=== PATIENT | female | born 1975 | race African-American/Black ===

== ENCOUNTER 2019-03-17 01:00 | Emergency (ER) | payer MEDICAID ==
[~2019-03-17] VITALS: Ht 162.6 cm; Wt 68.0 kg
[2019-03-17 01:07] VITALS: BP 116/65
== END 2019-03-17 04:36 | disposition left against medical advice (07) ==
LOC: ER 01:00
DX: Z53.21 Procedure and treatment not carried out due to patient leaving prior to being seen by health care provider (principal)

== ENCOUNTER 2019-03-17 07:21 | Emergency (ER) | payer MEDICAID ==
[~2019-03-17] VITALS: Ht 162.6 cm; Wt 68.0 kg
[2019-03-17] MEDS ORDERED: METOCLOPRAMIDE HCL 10MG TABLET PO ONE (09:00)
[2019-03-17] MEDS ORDERED: ACETAMINOPHEN 325MG TABLET PO ONE (09:00)
[2019-03-17 09:35] LABS: CLARITY URINE CLEAR (CLEAR); COLOR URINE YELLOW (YELLOW); KETONES URINE NEGATIVE (NEGATIVE); LEUKOCYTE ESTERASE URINE NEGATIVE (NEGATIVE); NITRITE URINE NEGATIVE (NEGATIVE); OCCULT BLOOD URINE NEGATIVE (NEGATIVE); PROTEIN URINE NEGATIVE (NEGATIVE); SPECIFIC GRAVITY URINE 1.015 (1.005-1.030); UROBILINOGEN URINE 0.2 E.U./dL (0.2-1.0)
[2019-03-17 14:27] VITALS: BP 103/63
== END 2019-03-17 14:30 | disposition home or self-care (01) ==
LOC: ER 07:21
DX: R51 Headache (principal)
CPT/HCPCS: 81003; 81025; 99283; J8597

== ENCOUNTER 2021-06-10 00:13 | Emergency (ER) | payer MEDICAID, OTHER ==
[~2021-06-10] VITALS: Ht 165.1 cm; Wt 75.3 kg
[~2021-06-10 00:13] MED LIST: DOCU-150 MT; DOXY100C2 MT; IBUP-2029 MT; P20 MT
[2021-06-10] MEDS ORDERED: DIPH28.34 TP (02:42)
[2021-06-10] MEDS ORDERED: TOLN150S TP (02:43)
[2021-06-10 03:13] VITALS: BP 127/78
== END 2021-06-10 04:58 | disposition home or self-care (01) ==
LOC: ER 00:13
DX: S90.862A Insect bite (nonvenomous), left foot, initial encounter (principal); S90.861A Insect bite (nonvenomous), right foot, initial encounter; J44.9 Chronic obstructive pulmonary disease, unspecified; F32.9 Major depressive disorder, single episode, unspecified; I10 Essential (primary) hypertension; B35.3 Tinea pedis; F17.290 Nicotine dependence, other tobacco product, uncomplicated; W57.XXXA Bitten or stung by nonvenomous insect and other nonvenomous arthropods, initial encounter; Y93.89 Activity, other specified; Y92.89 Other specified places as the place of occurrence of the external cause; Y99.8 Other external cause status; Z79.899 Other long term (current) drug therapy; Z88.0 Allergy status to penicillin; Z88.2 Allergy status to sulfonamides
CPT/HCPCS: 99282

== ENCOUNTER 2021-10-07 02:53 | Emergency (ER) | payer MEDICAID, OTHER ==
[~2021-10-07] VITALS: Ht 162.6 cm; Wt 77.0 kg
[~2021-10-07 02:53] MED LIST changes: +DIPH28.34 TP; -DOXY100C2 MT; +DOXY100C5 MT; +TOLN150S TP
[2021-10-07] MEDS ORDERED: IBUPROFEN 600MG TABLET PO STA (04:24)
[2021-10-07 05:01] LABS: BASOPHILS % 0.8 % (0.0-2.0); EOSINOPHILS % 1.6 % (0.0-5.0); HEMATOCRIT. 41.3 % (36.0-48.0); HEMOGLOBIN. 13.8 g/dL (12.0-16.0); LYMPHOCYTES % 42.3 % (20.0-50.0); MEAN CORPUSCULAR HEMOGLOBIN 30.7 pg (28.0-32.0); MEAN CORPUSCULAR VOLUME 91.7 fL (81.0-99.0); MEAN PLATELET VOLUME 7.3 fl (7.4-10.4); MONOCYTES % 8.7 % (2.0-8.0); NEUTROPHILS % 46.6 % (40.0-76.0); PLATELET 319 x1000/uL (130-400); RED CELL DISTRIBUTION WIDTH 14.3 % (11.6-14.6)
[2021-10-07 05:07] LABS: CHLORIDE 106 mEq/L (98-107)
[2021-10-07 05:22] LABS: HCG SCREEN NEGATIVE
[2021-10-07] MEDS ORDERED: IBUP-2028 MT (05:38)
[2021-10-07 06:14] VITALS: BP 110/56
== END 2021-10-07 06:16 | disposition home or self-care (01) ==
LOC: ER 02:53
DX: R07.89 Other chest pain (principal); J44.9 Chronic obstructive pulmonary disease, unspecified; I10 Essential (primary) hypertension; F17.290 Nicotine dependence, other tobacco product, uncomplicated
CPT/HCPCS: 36415; 71045; 80053; 83880; 84484; 84703; 85025; 93005; 99285

== ENCOUNTER 2021-10-17 17:56 | Emergency (ER) | payer MEDICAID ==
[~2021-10-17] VITALS: Ht 162.6 cm; Wt 82.0 kg
[~2021-10-17 17:56] MED LIST changes: +IBUP-2028 MT
[2021-10-18] MEDS ORDERED: LEVOFLOXACIN 250MG TABLET PO ONE (02:15)
[2021-10-18] MEDS ORDERED: LEVO750T46 MT (04:51)
[2021-10-18 07:35] VITALS: BP 146/70
[2021-10-19] MEDS ORDERED: LEVO250T58 PO (13:43)
== END 2021-10-18 08:18 | disposition home or self-care (01) ==
LOC: ER 17:56
DX: J18.9 Pneumonia, unspecified organism (principal); J44.9 Chronic obstructive pulmonary disease, unspecified; E11.9 Type 2 diabetes mellitus without complications; I10 Essential (primary) hypertension; Z98.890 Other specified postprocedural states; Z79.899 Other long term (current) drug therapy; Z88.2 Allergy status to sulfonamides; Z88.0 Allergy status to penicillin; Z59.00 Homelessness unspecified; Z20.822 Contact with and (suspected) exposure to COVID-19
CPT/HCPCS: 71045; 81025; 87426; 99284

== ENCOUNTER 2021-10-18 11:10 | Emergency (ER) | payer MEDICAID ==
[~2021-10-18] VITALS: Ht 162.6 cm; Wt 82.0 kg
[~2021-10-18 11:10] MED LIST changes: +LEVO750T46 MT
[2021-10-18] MEDS ORDERED: LEVOFLOXACIN 250MG TABLET PO ONE (20:15)
[2021-10-18] MEDS ORDERED: MECLIZINE 25MG TABLET PO ONE (20:30)
[2021-10-18 22:03] LABS: BASOPHILS % 0.6 % (0.0-2.0); HEMATOCRIT. 39.1 % (36.0-48.0); HEMOGLOBIN. 13.9 g/dL (12.0-16.0); LYMPHOCYTES % 42.4 % (20.0-50.0); MEAN CORPUSCULAR VOLUME 90.1 fL (81.0-99.0); MEAN PLATELET VOLUME 7.7 fl (7.4-10.4); PLATELET 279 x1000/uL (130-400); RED BLOOD CELL COUNT 4.35 mill/uL (4.2-5.4)
[2021-10-18 22:11] LABS: CHLORIDE 109 mEq/L (98-107)
[2021-10-19 13:04] VITALS: BP 104/64
[2021-10-19] MEDS ORDERED: LEVO250T58 PO (13:43)
== END 2021-10-19 15:11 | disposition home or self-care (01) ==
LOC: ER 11:10
DX: R42 Dizziness and giddiness (principal); J44.9 Chronic obstructive pulmonary disease, unspecified; E11.9 Type 2 diabetes mellitus without complications; I10 Essential (primary) hypertension; F17.290 Nicotine dependence, other tobacco product, uncomplicated; Z79.899 Other long term (current) drug therapy; Z88.0 Allergy status to penicillin
CPT/HCPCS: 36415; 80048; 85025; 93005; 99285; J8597

== ENCOUNTER 2024-10-08 18:49 | Emergency (ER) | payer MEDICAID ==
[~2024-10-08] VITALS: Ht 160 cm; Wt 68.0 kg
[~2024-10-08 18:49] MED LIST changes: -DOCU-150 MT; +DOCU-422 MT; +LEVO250T74 PO; -LEVO750T46 MT; +LEVO750T68 MT
[2024-10-08 18:57] VITALS: TEMP 98.1; O2SAT 99
[2024-10-08] MEDS: HYDROCODONE/ACETAMINOPHEN 10/325MG TABLET PO ONE (22:35)
[2024-10-09 05:07] VITALS: BP 134/78; PULSE 90; RESP 16; O2SAT 99
== END 2024-10-09 05:08 | disposition home or self-care (01) ==
LOC: ER 18:49
DX: R51.9 Headache, unspecified (principal); I10 Essential (primary) hypertension; J44.9 Chronic obstructive pulmonary disease, unspecified; E11.9 Type 2 diabetes mellitus without complications; Z88.2 Allergy status to sulfonamides; Z88.0 Allergy status to penicillin
CPT/HCPCS: 99284

== ENCOUNTER 2025-01-06 16:56 | Emergency (ER) | payer MEDICAID ==
[~2025-01-06] VITALS: Ht 165.1 cm; Wt 73.0 kg
[2025-01-06 16:57] VITALS: O2SAT 100
[2025-01-06 18:28] LABS: CHLORIDE 98 mEq/L (98-107); POTASSIUM 4.1 mEq/L (3.5-5.1); SODIUM 136 mEq/L (136-145)
[2025-01-06 18:29] LABS: CARBON DIOXIDE 25 mEq/L (21-32)
[2025-01-06] MEDS: ONDANSETRON HCL 4MG/2ML INJ IV STA (18:32)
[2025-01-06] MEDS: SODIUM CHLORIDE 0.9% 1,000 ML IV ONE (18:32)
[2025-01-06] MEDS: MORPHINE SULFATE 4 MG/ML INJ (FOR IV/IM USE) IV STA (18:32)
[2025-01-06 18:34] LABS: CREATININE 0.6 mg/dL (0.6-1.0); ETHANOL BLOOD 64 mg/dL (<10); GLUCOSE 88 mg/dL (70-105)
[2025-01-06 18:45] LABS: BASOPHILS % 0.7 % (0.0-2.0); EOSINOPHILS % 0.4 % (0.0-5.0); HEMATOCRIT. 46.3 % (36.0-48.0); HEMOGLOBIN. 15.5 g/dL (12.0-16.0); LYMPHOCYTES % 36.8 % (20.0-50.0); MEAN CORPUSCULAR HEMOGLOBIN 31.7 pg (28.0-32.0); MEAN CORPUSCULAR HGB CONC 33.4 g/dL (31.0-37.0); MEAN CORPUSCULAR VOLUME 94.7 fL (81.0-99.0); MEAN PLATELET VOLUME 7.9 fl (7.4-10.4); MONOCYTES % 6.8 % (2.0-8.0); NEUTROPHILS % 55.3 % (40.0-76.0); PLATELET 187 x1000/uL (130-400); RED BLOOD CELL COUNT 4.89 mill/uL (4.2-5.4); RED CELL DISTRIBUTION WIDTH 16.2 % (11.6-14.6); WHITE BLOOD COUNT 6.5 x1000/uL (4.5-11.0)
[2025-01-06 18:46] LABS: UREA NITROGEN BLOOD < 5 mg/dL (9-23)
[2025-01-06 18:58] VITALS: TEMP 36.7
[2025-01-06 21:08] VITALS: BP 120/58; PULSE 98; RESP 13; O2SAT 96
== END 2025-01-06 21:09 | disposition home or self-care (01) ==
LOC: ER 16:56 → CANBEDREQ 19:50 → ER 21:09
DX: E86.0 Dehydration (principal); F10.129 Alcohol abuse with intoxication, unspecified; E11.9 Type 2 diabetes mellitus without complications; F17.200 Nicotine dependence, unspecified, uncomplicated; I10 Essential (primary) hypertension; J44.9 Chronic obstructive pulmonary disease, unspecified; Z85.21 Personal history of malignant neoplasm of larynx; Z88.0 Allergy status to penicillin; Z88.2 Allergy status to sulfonamides; Y90.4 Blood alcohol level of 80-99 mg/100 ml
CPT/HCPCS: 80048; 80320; 85025; 36415; 96374; 96375; 99284; J2405; J2270; J7030; G0480